=== PATIENT | female | born 1945 | race Caucasian/White ===

== ENCOUNTER → 2024-09-28 09:56 | Outpatient (REF) | payer MEDICARE, OTHER, SELFPAY | LOC: HWRCS 09:56 | PROVIDERS: ATTENDING PHYSICIAN Internal Medicine; FAMILY PHYSICIAN Family Medicine | DX: I35.0 Nonrheumatic aortic (valve) stenosis (principal); I45.2 Bifascicular block; I10 Essential (primary) hypertension | CPT/HCPCS: 93306 ==